=== PATIENT | male | born 1990 ===

== ENCOUNTER 2023-03-19 13:38 | Emergency (ER) | payer BC ==
[2023-03-19 14:36] LABS: Absolute Lymphocytes (CBC) 1.4 K/uL (0.7-4.9); Hematocrit 36.4 % (39.6-49.0); Lymphocytes % 20.1 % (15.3-44.8); MCV 81.3 fL (80-100); MPV 8.9 fL (7.6-11.3); Platelets 220 thou/uL (152-406); RBC Red Blood Cell Count 4.48 M/uL (4.33-5.43)
[2023-03-19 14:37] LABS: Protime INR 3.08
[2023-03-19 14:45] LABS: ALT/SGPT 16 U/L (16-61); AST/SGOT 24 U/L (15-37); Albumin 1.8 g/dL (3.4-5.0); Alkaline Phosphatase 145 U/L (45-117); BUN Blood Urea Nitrogen 11 mg/dL (7-18); Bicarbonate 29 mEq/L (21-32); Bilirubin Total 0.2 mg/dL (0.2-1.0); Glomerular Filtration Rate 97 ml/min (=/>90); Glucose Level 108 mg/dL (74-106); NT PRO-BNP 2466 pg/mL (<125); Protein, Total 7.1 g/dL (6.4-8.2); Sodium Level 138 mEq/L (136-145); Troponin High Sensitivity 12.8 pg/mL (<58.9)
[2023-03-19 14:47] LABS: Bilirubin Direct < 0.1 mg/dL (0-0.2); Bilirubin Indirect, Calculated ND mg/dL (0.2-0.8)
--- NOTE | 2023-03-19 15:10 | RAD REPORT ---
EXAM DESCRIPTION: Daisy Single View03/19/2023 2:51 pm CLINICAL HISTORY: CHEST PAIN COMPARISON: No comparisons TECHNIQUE: Portable AP view of the chest. FINDINGS: Central interstitial prominence and patchy left basilar opacification, could be atelectati c. Right arm peripherally inserted catheter with catheter tip projecting over the right atrium. No pn eumothorax or effusion. Marked cardiomegaly. Left ventricular assist device in place. Left upper ches t wall battery pack also present. Mediastinal contours are otherwise unremarkable. IMPRESSION: Cardiomegaly with central interstitial prominence, suggesting central congestion/CHF. Pr obable left basilar atelectasis.
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
--- NOTE | 2023-03-19 15:21 | EDPHYS ---
Physician Documentation [facility] Name: Rajesh Gutierrez Age: 33 yrs Sex: Male : 1990 Arrival Date: 03/19/2023 Time: 13:38 Bed 17 Private MD: ED Physician Eugenio Deng HPI: 03/19 14:03 Patient is a 33-year-old on an LVAD for approximately 3 years secondary to heart jr11 failure. Patient states that he still has a pulse though. Patient is here because he was out in the sun for about 20 minutes, states he is very sensitive to the sun, felt lightheaded fatigued, had an episode of chest pain. Episode of chest pain though happens at least 5 times a week, this is not new to him. Patient is back to baseline at this point, given his LVAD, decided to come get evaluated. Historical: - Allergies: 13:52 Ritalin; db 13:52 Hydralazine; db - Home Meds: 15:25 folic acid 1 mg Oral tablet [Active]; aspirin 81 mg Oral capsule 1 cap daily [Active]; db duloxetine 60 mg oral capsule,delayed release (e.c.) [Active]; furosemide 40 mg Oral tablet [Active]; ferrous sulfate 325 mg (65 mg iron) Oral tablet [Active]; zinc sulfate 50 mg zinc (220 mg) Oral capsule [Active]; trazodone 100 mg Oral tablet [Active]; divalproex 500 mg oral Tablet, Extended Release 24 hr [Active]; 15:28 fluconazole 200 mg Oral tablet [Active]; potassium chloride 20 mEq Oral tablet, db extended release [Active]; gabapentin 300 mg oral capsule 1 cap [Active]; fluconazole 200 mg Oral tablet [Active]; losartan potassium (bulk) 100 MG [Active]; warfarin 1 mg Oral tablet [Active]; methocarbamol 500 mg Oral tablet [Active]; - PMHx: 13:52 Congestive heart failure; db - PSHx: 13:52 LVAD; db - Immunization history:: Client reports receiving the 2nd dose of the Covid vaccine. - Social history:: Smoking status: Patient denies any tobacco usage or history of. ROS: 14:03 All other systems are negative. jr11 Exam: 14:03 Constitutional: appears chronically ill Head/Face: Normocephalic, atraumatic. Eyes: jr11 Extra-ocular motions intact. Lids and lashes normal. Conjunctiva and sclera are non-icteric and not injected. Cornea within normal limits. Periorbital areas with no swelling, redness, or edema. ENT: Nares patent. No nasal discharge, no septal abnormalities noted. Oropharynx with no redness, swelling, or masses, exudates, or evidence of obstruction, uvula midline. Mucous membranes moist. Chest/axilla: chronic wound to sternum Cardiovascular: +Lvad flow Respiratory: diminished at the bases Abdomen/GI: soft non tender +LVAD line c/d/i Skin: Warm, dry with normal turgor. Normal color with no rashes, no lesions, and no evidence of cellulitis. MS/ Extremity: Pulses equal, no cyanosis. Neurovascular intact. Full, normal range of motion. Vital Signs: 13:34 BP 123 / 97; Pulse 70; Resp 24; Temp 98; Pulse Ox 97% on R/A; db 14:00 BP 119 / 96; Pulse 66; Resp 16; Pulse Ox 96% on R/A; db 14:30 BP 118 / 96; Pulse 60; Resp 18; Pulse Ox 97% on R/A; db 15:00 BP 118 / 89; Pulse 70; Resp 16; Pulse Ox 98% on R/A; db 15:30 BP 129 / 98; Pulse 66; Resp 16; Pulse Ox 99% on R/A; db MDM: 13:53 Patient medically screened. jr11 14:03 Differential diagnosis: Patient is a 33-year-old LVAD patient that is here after jr11 feeling dizzy lightheaded with chest pain, he states this pain often happens at least 5 times a day. We will get blood work chest x-ray speak with cardiology LVAD team. EKG interpreted by me shows left axis deviation, rate of 66, prolonged QRS. Data reviewed: vital signs, nurses notes. 15:19 ED course: Spoke to Harsha, LVAD coordinator, will follow up cardiology, no device jr11 alarms. Pt wants to go home. ER warnings given. 15:21 ED course: CXR interpreted by me, +LVAD. jr11 03/19 13:58 Order name: Basic Metabolic Panel; Complete Time: 14:56 jr11 03/19 13:58 Order name: CBC with Diff; Complete Time: 14:56 03/19 13:58 Order name: LFT's; Complete Time: 14:56 03/19 13:58 Order name: NT PRO-BNP; Complete Time: 14:56 03/19 13:58 Order name: PT-INR; Complete Time: 14:56 03/19 13:58 Order name: Troponin HS; Complete Time: 14:56 03/19 13:58 Order name: XRAY Chest (1 view); Complete Time: 15:17 03/19 13:58 Order name: EKG; Complete Time: 13:59 03/19 13:58 Order name: Cardiac monitoring; Complete Time: 14:26 03/19 13:58 Order name: EKG - Nurse/Tech; Complete Time: 14:26 03/19 13:58 Order name: IV Saline Lock; Complete Time: 14:26 03/19 13:58 Order name: Labs collected and sent; Complete Time: 14:03/19 13:58 Order name: O2 Per Protocol; Complete Time: 14:03/19 13:58 Order name: O2 Sat Monitoring; Complete Time: 14:26 Administered Medications: No medications were administered Disposition Summary: 03/19/23 15:20 Discharge Ordered Location: Home [facility] Condition: Stable [facility] Diagnosis - Chest pain, unspecified jr11 Discharge Instructions: - Discharge Summary Sheet jr11 - Nonspecific Chest Pain, Adult 11 Forms: - Medication Reconciliation Form jr11 - Thank You Letter jr11 - Antibiotic Education jr11 - Prescription Opioid Use jr11 - Patient Portal Instructions jr11 - Leadership Thank You Letter jr11 Signatures: Dispatcher [employer] EDEugenio Lewis MD MD jr11 Katie Bunch, RN RN db
[2023-03-19 16:09] VITALS: BP 129/98; O2SAT 99
--- NOTE | 2023-03-21 18:03 | EKG ---
Test Date: 2023-03-19 Test Time: 14:03:07 Operations Expert: SRIDHAR MEASUREMENT RESULTS: Intervals: Rate: 66 [place]: 208 QRSD: 140 QT: 510 QTc: 534 [place]: P: 77 [place]: 208 QRS: -43 T: 171 INTERPRETIVE STATEMENTS: Normal sinus rhythm Left axis deviation Nonspecific intraventricular block Lateral infarct, age undetermined Inferior infarct, age undetermined Abnormal ECG No previous ECG available for comparison Electronically Signed On 03-21-23 17:58:06 CDT by Gomez Rothman
== END 2023-03-19 15:49 | disposition home or self-care (01) ==
LOC: ER 13:38
DX: R07.9 Chest pain, unspecified (principal); I50.9 Heart failure, unspecified; Z88.8 Allergy status to other drugs, medicaments and biological substances
CPT/HCPCS: 36415; 71045; 80048; 80076; 83880; 84484; 85025; 85610; 93005; 99284

== ENCOUNTER 2023-04-14 22:17 | Emergency (ER) | payer BC ==
[2023-04-14 23:24] LABS: Absolute Lymphocytes (CBC) 1.8 K/uL (0.7-4.9); Hematocrit 34.6 % (39.6-49.0); Lymphocytes % 19.2 % (15.3-44.8); MCV 79.3 fL (80-100); MPV 8.4 fL (7.6-11.3); Platelets 267 thou/uL (152-406); RBC Red Blood Cell Count 4.37 M/uL (4.33-5.43)
[2023-04-14 23:29] LABS: SARS-CoV-2 Antigen Rapid Res Negative (Negative)
[2023-04-14 23:30] LABS: Protime INR 2.43
[2023-04-14 23:43] LABS: Specific Gravity 1.028 (1.005-1.030); Urine Bacteria None Seen /HPF (<20); Urine Bilirubin NEGATIVE (Negative); Urine Blood 1+ (Negative); Urine Clarity Clear (Clear); Urine Color Light-Yellow (Yellow); Urine Crystals Unidentified Few /HPF (None Seen); Urine Glucose NEGATIVE (Negative); Urine Mucus Slight /HPF (None Seen); Urine Protein 3+ (Negative); Urine RBC 21-50 /HPF (None Seen); Urine Urobilinogen Normal (Normal)
[2023-04-14 23:43] LABS: Albumin 1.9 g/dL (3.4-5.0); Bilirubin Total 0.1 mg/dL (0.2-1.0); Potassium 3.7 mEq/L (3.5-5.1); Protein, Total 7.8 g/dL (6.4-8.2)
--- NOTE | 2023-04-15 00:54 | ER ---
Nurse's Notes [facility] Name: Rajesh Gutierrez Age: 33 yrs Sex: Male : 1990 Arrival Date: 04/14/2023 Time: 22:17 Bed 3 Private MD: Diagnosis: Acute sinusitis, unspecified Presentation: 04/14 22:38 Chief complaint: Patient states: c/o sob and congestion as well as headache, stomach me1 ache, fever and chills. Seen in clinic on Tuesday for bronchitis and pneumonia was ruled out at that time. Coronavirus screen: Vaccine status: Patient reports receiving the 2nd dose of the covid vaccine. chills, congestion, difficulty breathing, fatigue, fever, headache, muscle pain, shortness of breath. Ebola Screen: No symptoms or risks identified at this time. Initial Sepsis Screen: Does the patient meet any 2 criteria? RR > 20 per min. HR > 90 bpm. Yes Does the patient have a suspected source of infection? Yes:. Risk Assessment: Do you want to hurt yourself or someone else? Patient reports no desire to harm self or others. Onset of symptoms was April 07, 2023. 22:38 Method Of Arrival: Ambulatory al1 22:38 Acuity: KEARA 3 me1 Triage Assessment: 22:41 General: Appears uncomfortable, well groomed, well developed, well nourished, Behavior me1 is calm, cooperative, appropriate for age, Reports chills for fever for feeling ill for fatigue for headache, stomachache, cough and congestion. Denies n/v/d. Pain: Complains of pain in head and stomach Pain does not radiate. Pain currently is 7 out of 10 on a pain scale. Quality of pain is described as aching, Pain began gradually, Is continuous. Neuro: Level of Consciousness is awake, alert, obeys commands, Oriented to person, place, time, situation, Appropriate for age. Cardiovascular: Capillary refill < 3 seconds Patient's skin is warm and dry. Respiratory: Reports shortness of breath that has worsened over the past week. cough that is pain with cough Airway is patent Respiratory effort is even, unlabored, Respiratory pattern is regular, tachypnea Onset: The symptoms/episode began/occurred about a week ago but has continued to worsen., the patient has moderate shortness of breath. GI: Reports abdominal pain Patient currently denies diarrhea, nausea, vomiting. Historical: - Allergies: 22:41 HYDRALAZINE; me1 22:41 Ritalin; me1 - PMHx: 22:41 Congestive heart failure; Transient cerebral ischemia; Cerebrovascular accident; me1 - PSHx: 22:41 LVAD; Appendectomy; me1 - Immunization history:: Adult Immunizations up to date. - Social history:: Smoking status: Patient denies any tobacco usage or history of. - Family history:: not pertinent. - Hospitalizations: : No recent hospitalization is reported. Screenin:[facility] ED Fall Risk Assessment (Adult) History of falling in the last 3 months, me1 including since admission No falls in past 3 months (0 pts) Confusion or Disorientation No (0 pts) Intoxicated or Sedated No (0 pts) Impaired Gait No (0 pts) Mobility Assist Device Used No (0 pt) Altered Elimination No (0 pt) Score/Fall Risk Level 0 - 2 = Low Risk. Abuse screen: Denies threats or abuse. Nutritional screening: No deficits noted. Tuberculosis screening: No symptoms or risk factors identified. Assessment: 22:47 General: See triage assessment.. Cardiovascular: Capillary refill < 3 seconds Patient's me1 skin is warm and dry. Cardiovascular:. Respiratory: Airway is patent Respiratory effort is even, unlabored, Respiratory pattern is regular, tachypnea. 23:25 Reassessment: Patient appears in no apparent distress at this time. Patient and/or jb4 family updated on plan of care and expected duration. Pain level reassessed. Patient is alert, oriented x 3, equal unlabored respirations, skin warm/dry/pink. 04/15 00:31 Reassessment: Pt resting in bed with eyes closed, respirations even and unlabored with jb4 no s/s of pain or distress noted. 01:23 Reassessment: Patient appears in no apparent distress at this time. Patient and/or jb4 family updated on plan of care and expected duration. Pain level reassessed. Patient is alert, oriented x 3, equal unlabored respirations, skin warm/dry/pink. Vital Signs: 04/14 22:38 BP 112 / 98; Pulse 95; Resp 25; Temp 97.9(O); Pulse Ox 98% on R/A; Weight 81.65 kg; me1 Height 5 ft. 5 in. ; 23:25 BP 100 / 87; Pulse 89; Resp 21; Pulse Ox 96% on R/A; jb4 04/15 00:31 BP 111 / 96; Pulse 84; Resp 22; Pulse Ox 98% on R/A; jb4 01:23 BP 112 / 96; Pulse 84; Resp 16; Pulse Ox 97% on R/A; jb4 04/14 22:38 Body Mass Index 29.95 (81.65 kg, 165.1 cm) me1 ED Course: 04/14 22:21 Patient arrived in ED. kj1 22:23 Dash Villegas MD is Attending Physician. rn 22:41 Triage completed. me1 22:41 Arm band placed on Patient placed in an exam room. me1 22:47 Patient has correct armband on for positive identification. Bed in low position. Call me1 light in reach. Side rails up X2. Provided Education on: POC. Verbalized understanding.. 22:47 No provider procedures requiring assistance completed. me1 22:51 Radiology exam delayed due to pt getting worked on by nurses. az 23:05 SARS RAPID Sent. me1 23:05 Flu Sent. me1 23:12 Bradley Cortez, RN is Primary Nurse. jb4 23:20 Inserted saline lock: 22 gauge in left wrist, using aseptic technique. Blood collected. oe 23:45 Chest Single View XRAY In Process Unspecified. EDMS 04/15 00:17 CT Head Brain wo Cont In Process Unspecified. EDMS 00:17 CT Chest, Abdomen, Pelvis - W/Contrast In Process Unspecified. EDMS Administered Medications: 01:17 Drug: Rocephin IV 1 grams Route: IV; Rate: calculated rate; Site: left wrist; jb4 Medication: 04/14 22:47 VIS not applicable for this client. me1 Outcome: 04/15 00:54 Discharge ordered by . rn 01:28 Discharged to home via wheelchair, with family. jb4 01:28 Condition: stable 01:28 Discharge instructions given to patient, Instructed on discharge instructions, follow up and referral plans. medication usage, Demonstrated understanding of instructions, follow-up care, medications, Prescriptions given X 1. 01:28 Patient left the ED. jb4 Signatures: Dispatcher [employer] EDHI Dash Villegas MD MD rn Bryson, James, RN RN jb4 Felton Nolasco Araceli az Jackson, Kandis kj1 Stefany Costa, RN RN me1
--- NOTE | 2023-04-15 00:55 | EDPHYS ---
Physician Documentation [facility] Name: Rajesh Gutierrez Age: 33 yrs Sex: Male : 1990 Arrival Date: 04/14/2023 Time: 22:17 Bed 3 Private MD: ED Physician Dash Villegas HPI: 04/14 23:24 This 33 yrs old Male presents to ER via Ambulatory with complaints of Shortness Of rn Breath, Congestion. 23:24 The patient has shortness of breath at rest, with light activity. Onset: The rn symptoms/episode began/occurred 1 week(s) ago. Duration: The symptoms are continuous. The patient's shortness of breath is aggravated by coughing, light activity. Associated signs and symptoms: Pertinent positives: productive cough, fever, Pertinent negatives: chest pain, hemoptysis. Severity of symptoms: At their worst the symptoms were mild in the emergency department the symptoms are unchanged. The patient has not experienced similar symptoms in the past. The patient has been recently seen by a physician:. Family member reports patient is LVAD patient evaluated on Tuesday and diagnosed with bronchitis no antibiotics given. Called coordinator today and told him symptoms were not improving so directed to the nearest ER for chest x-ray to rule out pneumonia. Patient reports headache, productive cough, malaise, chills, diarrhea and generalized weakness. Historical: - Allergies: 22:41 HYDRALAZINE; me1 22:41 Ritalin; me1 - PMHx: 22:41 Congestive heart failure; Transient cerebral ischemia; Cerebrovascular accident; me1 - PSHx: 22:41 LVAD; Appendectomy; me1 - Immunization history:: Adult Immunizations up to date. - Social history:: Smoking status: Patient denies any tobacco usage or history of. - Family history:: not pertinent. - Hospitalizations: : No recent hospitalization is reported. ROS: 23:24 Constitutional: Positive for subjective fever and chills Cardiovascular: Negative for rn chest pain, palpitations, and edema, Respiratory: Positive for cough and shortness of breath Abdomen/GI: Positive for diarrhea MS/Extremity: Negative for injury and deformity, Skin: Negative for injury, rash, and discoloration, Neuro: Negative for headache, numbness, tingling, and seizure. Exam: 23:24 Constitutional: No acute distress. Head/Face: Normocephalic, atraumatic. rn supplemental: LVAD circulating, no cyanosis Respiratory: Mild tachypnea, no retractions Abdomen/GI: Soft, non-tender Skin: Warm, dry without signs of cellulitis MS/ Extremity: No cyanosis Neuro: Ambulatory to room without assistance. Awake and alert, GCS 15, oriented to person, place, time, and situation. Cranial nerves II-XII grossly intact. Motor strength 4/5 in all extremities. Sensory grossly intact. Cerebellar exam normal. Normal gait. 04/15 00:06 ECG was reviewed by the Attending Physician. rn Vital Signs: 04/14 22:38 BP 112 / 98; Pulse 95; Resp 25; Temp 97.9(O); Pulse Ox 98% on R/A; Weight 81.65 kg; me1 Height 5 ft. 5 in. ; 23:25 BP 100 / 87; Pulse 89; Resp 21; Pulse Ox 96% on R/A; jb4 04/15 00:31 BP 111 / 96; Pulse 84; Resp 22; Pulse Ox 98% on R/A; jb4 01:23 BP 112 / 96; Pulse 84; Resp 16; Pulse Ox 97% on R/A; jb4 04/14 22:38 Body Mass Index 29.95 (81.65 kg, 165.1 cm) me1 MDM: 04/14 22:23 Patient medically screened. rn 04/15 00:51 Differential diagnosis: Anemia Anxiety Reaction Bronchitis pneumonia, Pneumothorax rn pulmonary edema, COVID, flu, sinusitis, viral illness. Data reviewed: vital signs, nurses notes, lab test result(s), radiologic studies, CT scan, and as a result, I will discharge patient. Consideration of Admission/Observation. Independent interpretation of the following test(s) in the Emergency Department X-Ray: My interpretation is Chest x-ray images negative for pneumonia per my interpretation. Care significantly affected by the following chronic conditions: Congestive heart failure, LVAD. Counseling: I had a detailed discussion with the patient and/or guardian regarding the historical points, exam findings, and any diagnostic results supporting the discharge/admit diagnosis, lab results, radiology results, the need for outpatient follow up, to return to the emergency department if symptoms worsen or persist or if there are any questions or concerns that arise at home. Special discussion: I discussed with the patient/guardian in detail that at this point there is no indication for admission to the hospital. It is understood, however, that if the symptoms persist or worsen the patient needs to return immediately for re-evaluation. ED course: No acute findings in the chest. No pneumonia. Acute sinusitis on CT head. Symptoms most consistent with viral illness but will cover with antibiotics due to chronic medical conditions. All results printed and given to family. No oxygen requirement. Will DC home with close follow-up. Return precautions given and understood.. 04/14 22:35 Order name: Blood Culture Adult (2) rn 04/14 22:35 Order name: CBC with Diff; Complete Time: 23:53 04/14 22:35 Order name: CMP; Complete Time: 23:53 04/14 22:35 Order name: Lactate w/ 2H reflex if indic.; Complete Time: 23:53 04/14 22:35 Order name: Protime (+inr); Complete Time: 23:53 04/14 22:35 Order name: Ptt, Activated; Complete Time: 23:53 04/14 22:35 Order name: Urinalysis w/ reflexes; Complete Time: 23:53 rn 04/14 22:35 Order name: SARS RAPID; Complete Time: 23:53 rn 04/14 22:35 Order name: Flu; Complete Time: 23:53 rn 04/14 22:36 Order name: BNP; Complete Time: 23:53 rn 04/14 23:17 Order name: Glucose, Ancillary Testing; Complete Time: 23:22 EDMS 04/14 22:35 Order name: Chest Single View XRAY rn 04/14 22:36 Order name: CT Head Brain wo Cont rn 04/14 22:36 Order name: CT Chest, Abdomen, Pelvis - W/Contrast rn 04/14 22:35 Order name: EKG; Complete Time: 22:35 rn 04/14 22:35 Order name: Accucheck; Complete Time: 23:05 rn 04/14 22:35 Order name: Cardiac monitoring; Complete Time: 23:01 rn 04/14 22:35 Order name: EKG - Nurse/Tech; Complete Time: 23:01 rn 04/14 22:35 Order name: IV Saline Lock - Large Bore; Complete Time: 23:21 rn 04/14 22:35 Order name: Labs collected and sent; Complete Time: 22:51 rn 04/14 22:35 Order name: O2 Per Protocol; Complete Time: 22:51 rn 04/14 22:35 Order name: O2 Sat Monitoring; Complete Time: :51 rn 04/14 22:35 Order name: Vital Signs; Complete Time: :51 rn EC:06 Rate is 89 beats/min. Rhythm is regular. Left axis deviation noted. QRS is positive in rn lead I and negative in lead aVF. QRS interval is prolonged at 162 msec. T waves are Normal. No ST changes noted. Clinical impression: NSR w/ Non-specific ST/T Changes. Interpreted by me. Reviewed by me. Administered Medications: 01:17 Drug: Rocephin IV 1 grams Route: IV; Rate: calculated rate; Site: left wrist; jb4 Disposition Summary: 04/15/23 00:54 Discharge Ordered Location: Home rn Problem: new rn Symptoms: have improved rn Condition: Stable rn Diagnosis - Acute sinusitis, unspecified rn Followup: rn - With: Private Physician - When: As needed - Reason: Recheck today's complaints, Re-evaluation by your physician Discharge Instructions: - Discharge Summary Sheet rn - Sinusitis, Adult rn Forms: - Medication Reconciliation Form rn - Thank You Letter rn - Antibiotic lime burner - Prescription Opioid Use rn - Patient Portal Instructions rn - Leadership Thank You Letter rn Prescriptions: - Augmentin 875-125 mg Oral Tablet - take 1 tablet by ORAL route every 12 hours for 10 days; 20 tablet; Refills: 0, rn Product Selection Permitted Signatures: Dispatcher [employer] Dash Dietz MD MD rn Bryson, James RN RN jb4 Stefany Costa RN RN me1
[2023-04-15] MEDS ORDERED: CEFTRIAXONE 1000 MG/VIAL ONE (01:11)
[2023-04-15 01:46] VITALS: TEMP 97.9
[2023-04-15 01:59] VITALS: BP 112/96; O2SAT 97
--- NOTE | 2023-04-15 16:32 | EKG ---
Test Date: 2023-04-14 Test Time: 22:52:23 Tent Finisher: ASHU MEASUREMENT RESULTS: Intervals: Rate: 89 WV: 168 QRSD: 162 QT: 476 QTc: 579 Left Hand: P: 40 WV: 168 QRS: -40 T: 146 INTERPRETIVE STATEMENTS: Normal sinus rhythm Left axis deviation Nonspecific intraventricular block Possible Lateral infarct, age undetermined Inferior infarct, age undetermined Abnormal ECG Compared to ECG 03/19/2023 14:03:07 No significant changes Electronically Signed On 04-15-23 16:31:28 CDT by Gomez Rothman
--- NOTE | 2023-04-15 18:03 | RAD REPORT ---
EXAM DESCRIPTION: RAD - Chest Single View - 04/14/2023 11:43 pm CLINICAL HISTORY: 33 years, Male, COUGH COMPARISON: None. FINDINGS: Single view of the chest was obtained portable. No prior films are available for compariso n. There is a right upper extremity PICC line tip of the catheter within the cavoatrial junction in g ood position. There is a intraventricular pump with the EKG leads markers. There is cardiomegaly. The thoracic aorta is unremarkable. The pulmonary vasculature is normal distribution. No significant ple ural effusions. The rest of the soft tissue and bony structures demonstrate to be unremarkable. IMPRESSION: Right upper extremity PICC line in good position. Cardiomegaly. Electronically signed by: Kayden Flores MD 04/14/2023 11:52 PM CDT Due to temporary technical issues with the PACS/Fluency reporting system, reports are being signed by the in house radiologists without review as a courtesy to insure prompt reporting. The interpreting radiologist is fully responsible for the content of the report.
--- NOTE | 2023-04-15 18:58 | RAD REPORT ---
EXAM DESCRIPTION: CT - Chest Abdomen Pelvis W Cont - 04/15/2023 1:29 am CLINICAL HISTORY: Fever, chest pain, cough, vomiting, diarrhea COMPARISON: None. TECHNIQUE: CT CHEST ABDOMEN PELVIS WITH IV CONTRAST on 04/14/2023 10:36 PM CDT. MIPS reconstructions were generated. This exam was performed according to our departmental dose-optimization program, which includes autom ated exposure control, adjustment of the mA and/or kV according to patient size and/or use of iterati ve reconstruction technique. FINDINGS: Vascular: Thoracic aorta is normal in course and caliber without aneurysm or dissection. P ulmonary arteries are poorly opacified. Abdominal aorta is normal in course and caliber without aneur ysm. Pelvic arteries are patent without aneurysm or occlusion. Chest: The heart is grossly enlarged. Left ventricular assist device is present. There is no pericard ial effusion. Intrathoracic lymph nodes are not enlarged. Right PICC line is in place. There is no pleural effusion, pleural thickening or pneumothorax. Central airways are patent. There i s minimal left basilar atelectasis. Abdomen: The liver is normal in appearance. There is no biliary dilatation. Gallbladder is normal in appearance. The pancreas and spleen are normal in appearance. The adrenal glands and kidneys are unre markable. There is no free air. There is no retroperitoneal adenopathy. Pelvis: There is moderate amount of stool throughout the colon. Urinary bladder is unremarkable. Ther e is no free fluid. Appendix is not clearly seen. Skeleton: There are no acute osseous findings. No suspicious bony lesions. IMPRESSION: No definite acute inflammatory process. Electronically signed by: Krish Acuña MD 04/15/2023 12:30 AM CDT Due to temporary technical issues with the PACS/Fluency reporting system, reports are being signed by the in house radiologists without review as a courtesy to insure prompt reporting. The interpreting radiologist is fully responsible for the content of the report.
--- NOTE | 2023-04-15 19:03 | RAD REPORT ---
EXAM DESCRIPTION: CT - Head Brain Wo Cont - 04/15/2023 1:29 am CLINICAL HISTORY: Headache;Fever. TECHNIQUE: Noncontrast CT through the head was performed. Axial, coronal, and sagittal reconstructio ns were created and sent to PACS. This exam was performed according to our departmental dose-optimiza tion program which includes use of Automated Exposure Control, adjustment of the mA and/or kV accordi ng to patient size and/or use of iterative reconstruction technique. COMPARISON: None. FINDINGS: Mild diffuse atrophy throughout the brain parenchyma. There is no intra-axial or extra-axi al bleed. There is no mass or mass effect. Chronic region of encephalomalacia in the right frontotemp oral region and right basal ganglia. Moderate mucosal thickening in the maxillary sinuses with air-fluid levels. Mild mucosal thickening i n the left renal sinus. Mild opacification of the ethmoid air cells. The remaining visualized paranas al sinuses and mastoid air cells are patent. No acute fracture is identified. IMPRESSION: 1. No acute intracranial abnormality identified. Chronic encephalomalacia in the right frontoparietal region and basal ganglia. 2. Paranasal sinus disease with fluid in the maxillary sinuses. Correlate for potential acute sinus itis. Electronically signed by: Cece Marks MD 04/15/2023 12:29 AM CDT Due to temporary technical issues with the PACS/Fluency reporting system, reports are being signed by the in house radiologists without review as a courtesy to insure prompt reporting. The interpreting radiologist is fully responsible for the content of the report.
== END 2023-04-15 01:28 | disposition home or self-care (01) ==
LOC: ER 22:17
DX: J01.90 Acute sinusitis, unspecified (principal); Z20.822 Contact with and (suspected) exposure to COVID-19; I50.9 Heart failure, unspecified; Z88.8 Allergy status to other drugs, medicaments and biological substances
CPT/HCPCS: 93005; 87040 ×2; 85025; 81001; 36415; 85610; 82947; 83605; 85730; 80053; 83880; 87804 ×2; 70450; 71260; 74177; 71045; 96374; 99284; 87811; Q9967; J0696

== ENCOUNTER 2023-04-22 02:00 | Emergency (ER) | payer BC ==
[2023-04-22 02:27] LABS: Absolute Lymphocytes (CBC) 1.9 K/uL (0.7-4.9); Hematocrit 34.9 % (39.6-49.0); Lymphocytes % 19.6 % (15.3-44.8); Platelets 309 thou/uL (152-406); RBC Red Blood Cell Count 4.36 M/uL (4.33-5.43)
[2023-04-22] MEDS ORDERED: FENTANYL CITR 100 MCG/2 ML ONE ×2 (02:36→05:52)
[2023-04-22] MEDS ORDERED: ONDANSETRON 4 MG/2 ML VIAL ONE (02:36)
[2023-04-22 02:47] LABS: ALT/SGPT 23 U/L (16-61); AST/SGOT 34 U/L (15-37); Alkaline Phosphatase 153 U/L (45-117); BUN Blood Urea Nitrogen 16 mg/dL (7-18); Bicarbonate 30 mEq/L (21-32); Bilirubin Total 0.1 mg/dL (0.2-1.0); Glomerular Filtration Rate 100 ml/min (=/>90); Glucose Level 117 mg/dL (74-106); Magnesium 1.9 mg/dL (1.6-2.4); NT PRO-BNP 1834 pg/mL (<125); Potassium 3.9 mEq/L (3.5-5.1); Protein, Total 8.2 g/dL (6.4-8.2); Sodium Level 138 mEq/L (136-145); Troponin High Sensitivity 24.6 pg/mL (<58.9)
[2023-04-22 02:52] LABS: Bilirubin Direct < 0.1 mg/dL (0-0.2); Bilirubin Indirect, Calculated ND mg/dL (0.2-0.8)
[2023-04-22] MEDS ORDERED: ASPIRIN 81 MG CHEWABLE TABLET ONE (05:52)
--- NOTE | 2023-04-22 06:58 | ER ---
Nurse's Notes [facility] Name: Rajesh Gutierrez Age: 33 yrs Sex: Male : 1990 Arrival Date: 04/22/2023 Time: 02:00 Bed 4 Private MD: Diagnosis: Subsequent non-ST elevation (NSTEMI) myocardial infarction;Chest Pain (LVAD) Presentation: 04/22 02:04 Chief complaint: Patient states: RELATIVE STATES MILD CHEST PAIN STARTED AROUND 9 PM. ha1 HE WENT TO SLEEP AND HE WOKE UP AROUND AN HOUR AGO COMPLAINING OF SEVER CHEST PAIN. PAIN AT 10/10. 02:04 Coronavirus screen: Vaccine status: Patient reports receiving the 2nd dose of the covid ha1 vaccine. MODERNA. Ebola Screen: No symptoms or risks identified at this time. Initial Sepsis Screen:. Onset of symptoms was April 22, 2023. 02:04 Method Of Arrival: Wheelchair ha1 02:04 Acuity: KEARA 3 ha1 02:04 Initial Sepsis Screen: Does the patient meet any 2 criteria? No. Patient's initial ha1 sepsis screen is negative. Does the patient have a suspected source of infection? No. Patient's initial sepsis screen is negative. Risk Assessment: Do you want to hurt yourself or someone else? Patient reports no desire to harm self or others. Triage Assessment: 02:04 General: Appears uncomfortable, Behavior is calm, cooperative. Pain: Complains of pain ha1 in chest Pain does not radiate. Pain currently is 10 out of 10 on a pain scale. Quality of pain is described as pressure. Neuro: Level of Consciousness is awake, alert, obeys commands, Oriented to person, place, situation. Cardiovascular: Reports chest pain, Capillary refill < 3 seconds. Respiratory: Airway is patent Respiratory effort is even, unlabored, Respiratory pattern is regular, symmetrical. GI: No signs and/or symptoms were reported involving the gastrointestinal system. Abdomen is round non-distended. : No signs and/or symptoms were reported regarding the genitourinary system. Derm: Skin is moist, Skin is normal. Musculoskeletal: Circulation, motion, and sensation intact. Historical: - Allergies: 02:18 HYDRALAZINE; ha1 02:18 Ritalin; ha1 - Home Meds: 02:18 aspirin 81 mg Oral capsule 1 cap daily [Active]; fluconazole 200 mg Oral tablet ha1 [Active]; warfarin 1 mg Oral tablet [Active]; furosemide 40 mg Oral tablet [Active]; - PMHx: 02:18 Cerebrovascular accident; Congestive heart failure; Transient cerebral ischemia; ha1 - PSHx: 02:18 Appendectomy; LVAD; ha1 - Immunization history:: Adult Immunizations up to date. - Social history:: Smoking status: Patient denies any tobacco usage or history of. Screenin:04 Abuse screen: Denies threats or abuse. Denies injuries from another. Nutritional ha1 screening: No deficits noted. Tuberculosis screening: No symptoms or risk factors identified. 07:23 [facility] ED Fall Risk Assessment (Adult) History of falling in the last 3 months, mb9 including since admission No falls in past 3 months (0 pts) Confusion or Disorientation No (0 pts) Intoxicated or Sedated No (0 pts) Impaired Gait No (0 pts) Mobility Assist Device Used No (0 pt) Altered Elimination No (0 pt) Score/Fall Risk Level 0 - 2 = Low Risk Oriented to surroundings, Maintained a safe environment, Educated pt \T\ family on fall prevention, incl call for assistance when getting out of bed. Assessment: 02:04 Reassessment: SEE TRIAGE ASSESSMENT. ha1 03:00 Reassessment: Patient and/or family updated on plan of care and expected duration. Pain ha1 level reassessed. General: Appears comfortable. Pain: Unable to use pain scale. FLACC scale score is 0 out of 10. 04:00 Reassessment: Patient and/or family updated on plan of care and expected duration. Pain ha1 level reassessed. eyes closed. Respiratory: Airway is patent Respiratory effort is even, unlabored, Respiratory pattern is regular, symmetrical. 05:00 Reassessment: Patient and/or family updated on plan of care and expected duration. Pain ha1 level reassessed. Patient is alert, oriented x 3, equal unlabored respirations, skin warm/dry/pink. pain 8/10. notified Dr. Castro. 06:05 Reassessment: eyes closed. Respiratory: Airway is patent Respiratory effort is even, ha1 unlabored, Respiratory pattern is regular, symmetrical. 07:14 Neuro: Level of Consciousness is awake, alert, obeys commands, Oriented to person, mb9 place, time, situation, Appropriate for age. Cardiovascular: Denies chest pain. Derm: Skin is pink, warm \T\ dry. Musculoskeletal: Range of motion: intact in all extremities. 08:20 Reassessment: No changes from previously documented assessment. Patient and/or family mb9 updated on plan of care and expected duration. Pain level reassessed. Patient is alert, oriented x 3, equal unlabored respirations, skin warm/dry/pink. 08:25 Reassessment: Report given to transferring nurse LATISHA Camarena. mb9 08:53 Reassessment: report given to EMS. mb9 Vital Signs: 02:04 Weight 81.65 kg; Height 5 ft. 5 in. ; Pain 10/10; ha1 02:10 BP 124 / 103; Pulse 100; Resp 20 S; Temp 98.2(O); Pulse Ox 97% on R/A; ha1 03:00 BP 120 / 107; Pulse 103; Resp 20 S; Pulse Ox 96% on R/A; ha1 04:00 BP 127 / 91; Pulse 109; Resp 20 S; Pulse Ox 96% on R/A; ha1 05:00 BP 137 / 110; Pulse 117; Resp 20 S; Pulse Ox 96% on R/A; ha1 06:15 BP 133 / 115; Pulse 108; Resp 20; Pulse Ox 95% on R/A; ha1 07:14 BP 133 / 87; Pulse 114; Resp 16; Pulse Ox 100% on R/A; mb9 08:20 BP 105 / 70; Pulse 113; Resp 16; Pulse Ox 96% on R/A; mb9 02:04 Body Mass Index 29.95 (81.65 kg, 165.1 cm) ha1 02:04 Pain Scale: Adult ha1 ED Course: 02:03 Patient arrived in ED. ag3 02:04 Asaf Castro MD is Attending Physician. kdr 02:04 Johanny Luna RN is Primary Nurse. kd3 02:04 Patient maintains SpO2 saturation greater than 95% on room air. ha1 02:04 Arm band placed on right wrist. ha1 02:04 Patient has correct armband on for positive identification. Bed in low position. Call ha1 light in reach. Side rails up X2. Adult w/ patient. Client placed on continuous cardiac and pulse oximetry monitoring. NIBP monitoring applied. 02:18 Triage completed. ha1 02:31 Basic Metabolic Panel Sent. kd3 02:31 LFT's Sent. kd3 02:31 Magnesium Sent. kd3 02:31 NT PRO-BNP Sent. kd3 02:31 Troponin HS Sent. kd3 02:46 Inserted saline lock: 20 gauge in left upper arm, using aseptic technique. ultrasound as6 guided, long catheter. 05:01 XRAY Chest (1 view) In Process Unspecified. EDMS 06:56 initiated a transfer with Kenna from the [facility] at the request eb of the patients LVAD district sales representativeSocorro Valencia. 07:05 per Kenna [facility] is requested a COVID swab to be collected. eb 07:14 SARS-COV-2 RT PCR Sent. mb9 07:24 No provider procedures requiring assistance completed. Patient transferred, IV remains mb9 in place. 07:41 Attending Physician role handed off by Asaf Castro MD rn 07:41 Dash Villegas MD is Attending Physician. rn 07:59 administrative approval given by Kenna Cabrera Rn/ patient has been accepted to [facility] Failure [facility]U/ Dr. Aniya Collins has accepted the patient in transfer without consultation with Dr. Villegas/ report to be called to [phone]. 08:30 [facility] contacted for transport/ Rajesh will send a truck. eb Administered Medications: 02:45 Drug: Ondansetron IVP 4 mg IVP once; over 2 minutes Route: IVP; Site: left antecubital; ha1 03:00 Follow up: Response: No adverse reaction ha1 02:47 Drug: fentaNYL (PF) IVP 25 mcg IVP once Route: IVP; Site: left antecubital; ha1 03:00 Follow up: Response: No adverse reaction; Pain is decreased; RASS: Alert and Calm (0) ha1 03:00 Drug: NS 0.9% 1000 ml IV at 1 bolus Per protocol; 1000 mL bolus Route: IV; Rate: 1 kd3 bolus; Site: left antecubital; 05:44 Drug: Aspirin PO Chewable Tablet 324 mg PO once; 81 mg tablets x 4 Route: PO; kd3 06:12 Follow up: Response: No adverse reaction ha1 05:45 Drug: fentaNYL (PF) 25 mcg IVP once Route: IVP; Site: left antecubital; kd3 06:12 Follow up: Response: No adverse reaction; Pain is decreased; RASS: Alert and Calm (0) ha1 Medication: 04:33 VIS not applicable for this client. ha1 Outcome: 06:57 ER care complete, transfer ordered by . kdr 08:24 Transferred to [facility], Transfer form completed. mb9 08:24 Condition: stable 08:24 Instructed on the need for transfer, 08:57 Patient left the ED. mb9 Signatures: Dispatcher [employer] EDMS Asaf Castro MD MD kdr Nieto, Roman, MD MD rn Botello, Elizabeth eb Gomez, Alice ag3 Brian Almeida RN RN as6 Johanny Luna RN RN kd3 María Hutton RN RN ha1 Sarah Anaya RN RN mb9 Corrections: (The following items were deleted from the chart) 02:33 02:10 BP 124 / 103; Pulse 100bpm; Resp 20bpm; Spontaneous; Pulse Ox 97% RA; ha1 ha1 03:19 03:15 Reassessment: Patient and/or family updated on plan of care and expected ha1 duration. Pain level reassessed. ha1 03:19 03:15 General: Appears comfortable, ha1 ha1 03:19 03:15 Pain: Unable to use pain scale. FLACC scale score is 0 out of 10. ha1 ha1 05:46 05:45 NS 0.9% IV 1000 ml IV at 1 bolus in left antecubital kd3 kd3
--- NOTE | 2023-04-22 06:58 | EDPHYS ---
Physician Documentation [facility] Name: Rajesh Gutierrez Age: 33 yrs Sex: Male : 1990 Arrival Date: 04/22/2023 Time: 02:00 Bed 4 Private MD: ED Physician Dash Villegas HPI: 04/22 03:20 This 33 yrs old Male presents to ER via Wheelchair with complaints of Chest Pain. kdr 03:20 Patient states that he began having mild to moderate chest pain that began around 9 PM. kdr He went to sleep initially and then woke up about an hour later complaining of more severe 10 out of 10 chest pain. Patient does have a history of occasional chest pains however today's episode is more persistent and more severe. Patient's have been evaluated here previously and discharged. Patient otherwise is nontoxic-appearing.. Onset: The symptoms/episode began/occurred suddenly, at 21:00. Severity of symptoms: At their worst the symptoms were severe in the emergency department the symptoms are unchanged. The patient has experienced similar episodes in the past, but today's symptoms are worse, more painful. The patient has not recently seen a physician. Historical: - Allergies: 02:18 HYDRALAZINE; ha1 02:18 Ritalin; ha1 - Home Meds: 02:18 aspirin 81 mg Oral capsule 1 cap daily [Active]; fluconazole 200 mg Oral tablet ha1 [Active]; warfarin 1 mg Oral tablet [Active]; furosemide 40 mg Oral tablet [Active]; - PMHx: 02:18 Cerebrovascular accident; Congestive heart failure; Transient cerebral ischemia; ha1 - PSHx: 02:18 Appendectomy; LVAD; ha1 - Immunization history:: Adult Immunizations up to date. - Social history:: Smoking status: Patient denies any tobacco usage or history of. ROS: 03:20 Constitutional: Negative for fever, chills, and weight loss, Eyes: Negative for injury, kdr pain, redness, and discharge, ENT: Negative for injury, pain, and discharge, Neck: Negative for injury, pain, and swelling, Respiratory: Negative for shortness of breath, cough, wheezing, and pleuritic chest pain, Abdomen/GI: Negative for abdominal pain, nausea, vomiting, diarrhea, and constipation, Back: Negative for injury and pain, : Negative for injury, bleeding, discharge, and swelling, MS/Extremity: Negative for injury and deformity, Skin: Negative for injury, rash, and discoloration, Neuro: Negative for headache, weakness, numbness, tingling, and seizure activity. Psych: Negative for depression, anxiety, suicide ideation, homicidal ideation, and hallucinations, Allergy/Immunology: Negative for hives, rash, and allergies, Endocrine: Negative for neck swelling, polydipsia, polyuria, polyphagia, and marked weight changes, Hematologic/Lymphatic: Negative for swollen nodes, abnormal bleeding, and unusual bruising, 03:20 Cardiovascular: Positive for chest pain, Negative for edema, orthopnea, palpitations, paroxysmal nocturnal dyspnea, Exam: 03:20 Constitutional: This is a well developed, well nourished patient who is awake, alert, kdr and in no acute distress. Head/Face: Normocephalic, atraumatic. Eyes: Pupils equal round and reactive to light, extra-ocular motions intact. Lids and lashes normal. Conjunctiva and sclera are non-icteric and not injected. Cornea within normal limits. Periorbital areas with no swelling, redness, or edema. Neck: Trachea midline, no thyromegaly or masses palpated, and no cervical lymphadenopathy. Supple, full range of motion without nuchal rigidity, or vertebral point tenderness. No Meningismus. Chest/axilla: Normal chest wall appearance and motion. Nontender with no deformity. No lesions are appreciated. Respiratory: Lungs have equal breath sounds bilaterally, clear to auscultation and percussion. No rales, rhonchi or wheezes noted. No increased work of breathing, no retractions or nasal flaring. Abdomen/GI: Soft, non-tender, with normal bowel sounds. No distension or tympany. No guarding or rebound. No evidence of tenderness throughout. Back: No spinal tenderness. No costovertebral tenderness. Full range of motion. Skin: Warm, dry with normal turgor. Normal color with no rashes, no lesions, and no evidence of cellulitis. MS/ Extremity: Pulses equal, no cyanosis. Neurovascular intact. Full, normal range of motion. Neuro: Awake and alert, GCS 15, oriented to person, place, time, and situation. Cranial nerves II-XII grossly intact. Motor strength 5/5 in all extremities. Sensory grossly intact. Cerebellar exam normal. Normal gait. Psych: Awake, alert, with orientation to person, place and time. Behavior, mood, and affect are within normal limits. 03:20 Cardiovascular: Rate: Due to the LVAD, unable to assess a heart rate, Vital Signs: 02:04 Weight 81.65 kg; Height 5 ft. 5 in. ; Pain 10/10; ha1 02:10 BP 124 / 103; Pulse 100; Resp 20 S; Temp 98.2(O); Pulse Ox 97% on R/A; ha1 03:00 BP 120 / 107; Pulse 103; Resp 20 S; Pulse Ox 96% on R/A; ha1 04:00 BP 127 / 91; Pulse 109; Resp 20 S; Pulse Ox 96% on R/A; ha1 05:00 BP 137 / 110; Pulse 117; Resp 20 S; Pulse Ox 96% on R/A; ha1 06:15 BP 133 / 115; Pulse 108; Resp 20; Pulse Ox 95% on R/A; ha1 07:14 BP 133 / 87; Pulse 114; Resp 16; Pulse Ox 100% on R/A; mb9 08:20 BP 105 / 70; Pulse 113; Resp 16; Pulse Ox 96% on R/A; mb9 02:04 Body Mass Index 29.95 (81.65 kg, 165.1 cm) ha1 02:04 Pain Scale: Adult ha1 MDM: 03:20 Data reviewed: vital signs, nurses notes, lab test result(s), radiologic studies. kdr 05:42 ED course: Patient states that his pain has returned. He did get relief from the kdr initial fentanyl dose. Currently the patient states that his pain is 8 out of 10. The repeat troponin was double of the initial value though still within the normal range. We will obtain this third troponin to make certain that he is not trending upward given the time from onset of pain. 06:57 Patient medically screened. kdr 04/22 02:08 Order name: Basic Metabolic Panel; Complete Time: 03:12 kdr 04/22 02:08 Order name: CBC with Diff; Complete Time: 03:12 kdr 04/22 02:08 Order name: LFT's; Complete Time: 03:12 kdr 04/22 02:08 Order name: Magnesium; Complete Time: 03:12 kdr 04/22 02:08 Order name: NT PRO-BNP; Complete Time: 03:12 kdr 04/22 02:08 Order name: Troponin HS; Complete Time: 03:12 kdr 04/22 03:16 Order name: Troponin High Sensitivity: Repeat in 2 hours; Complete Time: 05:27 kdr 04/22 05:28 Order name: Troponin High Sensitivity; Complete Time: 07:53 kdr 04/22 07:05 Order name: SARS-COV-2 RT PCR; Complete Time: 07:53 eb 04/22 02:08 Order name: XRAY Chest (1 view); Complete Time: 08:08 kdr 04/22 02:08 Order name: EKG; Complete Time: 02:09 kdr 04/22 02:08 Order name: Cardiac monitoring; Complete Time: 02:47 kdr 04/22 02:08 Order name: EKG - Nurse/Tech; Complete Time: 02:31 kdr 04/22 02:08 Order name: IV Saline Lock; Complete Time: 02:46 kdr 04/22 02:08 Order name: Labs collected and sent; Complete Time: 02:31 kdr 04/22 02:08 Order name: O2 Per Protocol; Complete Time: 02:31 kdr 04/22 02:08 Order name: O2 Sat Monitoring; Complete Time: 02:31 kdr Administered Medications: 02:45 Drug: Ondansetron IVP 4 mg IVP once; over 2 minutes Route: IVP; Site: left antecubital; ha1 03:00 Follow up: Response: No adverse reaction ha1 02:47 Drug: fentaNYL (PF) IVP 25 mcg IVP once Route: IVP; Site: left antecubital; ha1 03:00 Follow up: Response: No adverse reaction; Pain is decreased; RASS: Alert and Calm (0) ha1 03:00 Drug: NS 0.9% 1000 ml IV at 1 bolus Per protocol; 1000 mL bolus Route: IV; Rate: 1 kd3 bolus; Site: left antecubital; 05:44 Drug: Aspirin PO Chewable Tablet 324 mg PO once; 81 mg tablets x 4 Route: PO; kd3 06:12 Follow up: Response: No adverse reaction ha1 05:45 Drug: fentaNYL (PF) 25 mcg IVP once Route: IVP; Site: left antecubital; kd3 06:12 Follow up: Response: No adverse reaction; Pain is decreased; RASS: Alert and Calm (0) ha1 Disposition Summary: 04/22/23 06:57 Transfer Ordered Notes: Transfer Location: [facility] kdr Reason: Higher level of care kdr Condition: Fair kdr Problem: an acute exacerbation kdr Symptoms: have improved kdr Accepting Physician: cardiology(04/22/23 08:57) mb9 Diagnosis - Subsequent non-ST elevation (NSTEMI) myocardial infarction kdr - Chest Pain (LVAD) kdr Forms: - Medication Reconciliation Form kdr - SBAR form kdr Signatures: Dispatcher [employer] EDAsaf Kern MD MD kdr Nieto, Roman, MD MD rn Doucette, Kyli, RN RN kd3 María Hutton RN RN ha1 Sarah Anaya RN RN mb9 Corrections: (The following items were deleted from the chart) 08:57 06:57 cardiology kdr mb9
--- NOTE | 2023-04-22 08:08 | RAD REPORT ---
EXAM DESCRIPTION: RAD - Chest Single View - 04/22/2023 4:59 am CLINICAL HISTORY: CHEST PAIN COMPARISON: Chest Single View dated 04/14/2023; Chest Single View dated 03/19/2023; Chest Abdomen Pelv is W Cont dated 04/15/2023 FINDINGS: Lines: Right subclavian approach PICC with tip overlying the superior cavoatrial junction. Lungs: Diffuse prominence of the pulmonary interstitium and vascular engorgement. Low lung volumes. Pleural: No significant pleural effusions or pneumothorax. Cardiac: Cardiac assist device. Mediastinum: Within normal limits. Bones: No acute fractures. Other: None IMPRESSION: Decreased lung volumes with vascular congestion and probable pulmonary edema.
[2023-04-22 09:03] VITALS: TEMP 98.2
[2023-04-22 09:14] VITALS: BP 105/70; O2SAT 96
--- NOTE | 2023-04-25 12:40 | EKG ---
Test Date: 2023-04-22 Test Time: 06:42:54 Order Checker: MEASUREMENT RESULTS: Intervals: Rate: 112 [place]: 156 QRSD: 144 QT: 358 QTc: 488 Orla: P: 14 [place]: 156 QRS: -79 T: 132 INTERPRETIVE STATEMENTS: Sinus tachycardia Left axis deviation Left bundle branch block Abnormal ECG Compared to ECG 04/14/2023 22:56:00 Left-axis deviation now present Left bundle-branch block now present Sinus rhythm no longer present Atrial abnormality no longer present Indeterminate axis no longer present Myocardial infarct finding no longer present Electronically Signed On 04-25-23 12:33:07 CDT by Gomez Rothman
== END 2023-04-22 08:57 | disposition short-term general hospital (02) ==
LOC: ER 02:00
DX: I22.2 Subsequent non-ST elevation (NSTEMI) myocardial infarction (principal); I21.9 Acute myocardial infarction, unspecified; Z95.811 Presence of heart assist device; Z20.822 Contact with and (suspected) exposure to COVID-19; I50.9 Heart failure, unspecified; Z86.73 Personal history of transient ischemic attack (TIA), and cerebral infarction without residual deficits; Z79.01 Long term (current) use of anticoagulants; Z79.82 Long term (current) use of aspirin; Z88.8 Allergy status to other drugs, medicaments and biological substances
CPT/HCPCS: 85025; 80048; 36415; 83735; 80076; 84484 ×3; 83880; 87635; 71045; 96375; 96374; 99285; J3010 ×2; J2405; 93005